=== PATIENT | female | born 1985 | race Caucasian/White ===

== ENCOUNTER → 2018-07-01 | Outpatient (CLI) | payer OTHER | END | disposition home or self-care (01) | LOC: FIMAGING 07:29 | PROVIDERS: ATTEND Advanced Practice Midwife | DX: Z36.89 Encounter for other specified antenatal screening (principal) ==

== ENCOUNTER 2018-11-26 19:56 | Inpatient (IN) | payer OTHER ==
--- NOTE | 2018-11-26 20:53 | PDGENHP ---
History and Physical History and Physical: Care: [facility] HPI: Shanelle Baxter is a 33yo with IUP@40-2 weeks that presents to L&D from [facility] for pain relief, currently in early labor. She reports contractions regular and intense all day and has increasing back spasms. She states contractions now spaced out to every 15 min EDC: 11/24/2018 which is based on LMP which is known and consistent with Ultrasound at 10 weeks. Her is complicated by: rh negative, FAMILY DENTIST Review of Systems: Constitutional: Denies any fever, chills, or fatigue HEENT: denies any visual changes, difficulty swallowing, hearing loss Cardiovascular: Denies any chest pain, palpitations, leg swelling Respiratory: denies any cough, wheezing, or shortness of breathe GI: Denies any nausea, vomiting, diarrhea, constipation : denies any dysuria, urgency, frequency, vaginal bleeding Musculoskeletal: denies any muscle or bone pain Skin: denies any rashes Neuro: denies any headache, seizures, lightheadedness, dizziness, or loss of consciousness Psychiatric: denies any depression, anxiety, or SI/HI thoughts HISTORY: Previous OB history: G1 Past medical history: migraines, h/o depression Past surgical history: cyst removed from wrist, tonsillectomy, oral surgery Social: Denies any alcohol, tobacco, or drug use. Family history: Not relevant Medications: PNV, folic acid, rhogam (08/25/18) Allergies: PCN, demerol, codeine, bactrim, benadryl, cephalosporins LABS: Rh: O neg ABS: Neg Rubella: Immune HbsAg: NR HIV: NR VDRL: NR 1hr: 95 GC: Neg Chlamydia: Neg Pap: Normal (pap 2018) GBS: neg PHYSICAL EXAM: Constitutional: WN, A&Ox3 HEENT: normocephalic atraumatic, supple Skin: Warm, dry, intact Heart: RRR, no murmur Chest: CTA-B Abdomen: Soft, nontender, gravid SVE: 2/90/0 (per CNM from [facility]) Extremities: trace edema, negative Marvin's sign Neuro: grossly normal Psych: normal affect assessment: FHT baseline 150 +accels, no decels, moderate variability Contractions: toco q 15 Assessment: * [id number] with IUP@ 40-2wks * Rh negative * early/prodromal labor * cat 1 FHR tracing * GBS Negative Plan: * admit to L&D * PEDRO per pt request * will start induction at time of PEDRO, pitocin per protocol * reassess 2-4hr/PRN Today's visit was approximately 30 min, of which >50% of visit 20 min, was spent face to face with pt on direct counseling/coordination of care.
[2018-11-26] MEDS ORDERED: LIDOCAINE 1% 300 MG/30 ML SDV SC PRN (21:01)
[2018-11-26] MEDS ORDERED: OLIVE OIL 118 ML BTL MISC PRN (21:01)
[2018-11-26] MEDS ORDERED: TERBUTALINE SULFATE 1 MG/ML VIAL IV PRN (21:01)
[2018-11-26] MEDS ORDERED: OXYTOCIN/RINGERS LACTATE 1,000 ML IV PRN (21:01)
[2018-11-26] MEDS ORDERED: AMMONIA AROMATIC 1 EACH AMP IH PRN (21:01)
[2018-11-26] MEDS ORDERED: EPSOM SALT 454 GM TP PRN (21:01)
[2018-11-26] MEDS ORDERED: IBUPROFEN 600 MG TAB PO PRN (21:01)
[2018-11-26] MEDS ORDERED: MISOPROSTOL 200 MCG TAB PO PRN (21:01)
[2018-11-26] MEDS ORDERED: LR 1,000 ML IV PRN (21:01)
[2018-11-26 21:12] LABS: PLATELET COUNT 187 10^3/uL (150-400)
--- NOTE | 2018-11-26 21:22 | PREANESOB ---
Obstetric Pre-Anesthesia Info - General Info Proposed Procedure: PEDRO - Info Status: Full Term Monitors: External FHR Pattern: Reassuring - Labor Status Pitocin: Planned Indications for Labor Analgesia: Pain Control Labor Epidural: Proposed Anesthesia Allergies/Adverse Reactions: Allergy/AdvReac Type Severity Reaction Status Date / Time amoxicillin Allergy Verified 06/21/16 15:43 Cephalosporins Allergy Verified 06/21/16 15:43 codeine Allergy Verified 06/21/16 15:42 Penicillins Allergy Verified 06/21/16 15:42 sulfamethoxazole Allergy Verified 06/21/16 15:42 [From Bactrim] trimethoprim [From Bactrim] Allergy Verified 06/21/16 15:42 Home Medications: Medication Instructions Recorded Azithromycin [Zithromax] 250 mg PO DAILY #6 tab 06/21/16 Visit Medications: Generic Name Dose Route Start Last Admin Trade Name Freq PRN Reason Stop Dose Admin Ammonia (Aromatic Spirit) 1 each 11/26/18 21:01 Ammonia Aromatic IH 12/06/18 21:00 ONCE PRN Fainting Lactated Ringer's 1,000 mls @ 0 mls/hr 11/26/18 21:01 Lr IV 11/27/18 21:00 PRN PRN SEE PROTOCOL CONDITIONS Protocol Per Protocol Oxytocin/Lactated Ringer's 1,000 mls @ 999 mls/hr 11/26/18 21:01 Pitocin 20 Units/Lr (Premix) IV PRN PRN Post bleeding Ibuprofen 600 mg 11/26/18 21:01 Motrin PO ONCE PRN post , pain Lidocaine HCl 300 mg 11/26/18 21:01 Lidocaine Hcl 1% SC 05/25/19 21:00 ONCE PRN episiotomy Magnesium Sulfate 454 gm 11/26/18 21:01 Epsom Salt TP 05/25/19 21:00 Q1H PRN perineal discomfort Misoprostol 800 - 1,000 mcg 11/26/18 21:01 Cytotec PO 05/25/19 21:00 ONCE PRN Vaginal Atony/Bleeding [place] Oil 118 ml 11/26/18 21:01 Sweet Oil MISC 05/25/19 21:00 ONCE PRN perineal massage Terbutaline Sulfate 0.25 mg 11/26/18 21:01 Brethine IV 05/25/19 21:00 ONCE PRN Tachysystole - Anesthesia History Response to Local Anesthetics: Not Applicable Anesthesia & Operative History: No Prior Problems Family Anesthesia History: Not Applicable - Focused Exam Neck exam: FROM Mallampati Score: Class 1 Mouth exam: normal dental/mouth exam Pulmonary: no respiratory distress Cardiovascular: regular rate and rhythym Labs: 11/26/18 21:00 - Plan Anesthetic Plan: PEDRO Consent Signed and on Chart: Yes Patient/Guardian Understands and Agrees to Plan: Yes Urgent/Emergent Case: Meghann wong completed preop but documented later for safe timely pt care
--- NOTE | 2018-11-26 21:22 | PDANEPAE ---
ANE Past Medical History - Pulmonary History Hx Oxygen in Use at Home: No - Endocrine History Hx Diabetes: No ANE Review of Systems Review of Systems: ANE Patient History - Allergies Allergies/Adverse Reactions: amoxicillin Allergy (Verified 06/21/16 15:43) Cephalosporins Allergy (Verified 06/21/16 15:43) codeine Allergy (Verified 06/21/16 15:42) Penicillins Allergy (Verified 06/21/16 15:42) sulfamethoxazole [From Bactrim] Allergy (Verified 06/21/16 15:42) trimethoprim [From Bactrim] Allergy (Verified 06/21/16 15:42) - Smoking Hx Smoking Status: Never smoked ANE Labs/Vital Signs - Labs Result Diagrams: 11/26/18 21:00
[2018-11-26] MEDS ORDERED: BUPIVACAINE 0.25% 10 ML SDV ONE (21:23)
[2018-11-26] MEDS ORDERED: fentaNYL 2MCG/ML/BUP 0.1% RTU 100 ML BAG EP ONE (21:23)
[2018-11-26] MEDS ORDERED: PHENYLEPHRINE HCL 100 MCG/ML SYR IVP PRN (21:57)
[2018-11-26] MEDS ORDERED: ONDANSETRON 4 MG/2 ML VIAL IVP PRN (21:57)
[2018-11-26] MEDS ORDERED: METOCLOPRAMIDE 10 MG/2 ML VIAL IVP PRN (21:57)
[2018-11-26] MEDS ORDERED: NALOXONE HCL 0.4 MG/ML INJ IVP PRN (21:57)
--- NOTE | 2018-11-26 21:57 | POSTANESTH ---
Post Anesthetic Evaluation Cardiovascular Status: Normal, Stable Respiratory Status: Normal, Stable Level of Consciousness/Mental Status: Can Participate in Eval Pain Control: Adequate, Prn Tx Ordered Nausea/Vomiting Control: Adequate, Prn Tx Ordered Complications Possibly Related to Anesthesia: None Noted
[2018-11-26] MEDS ORDERED: LR 500 ML IV SCH (22:00)
[2018-11-26] MEDS ORDERED: fentaNYL 2MCG/ML/BUP 0.1% RTU 100 ML EP SCH (22:00)
[2018-11-26] MEDS ORDERED: OLIVE OIL 118 ML BTL MISC ONE (22:19)
[2018-11-26] MEDS ORDERED: TERBUTALINE SULFATE 1 MG/ML VIAL ONE (22:19)
[2018-11-26] MEDS ORDERED: LIDOCAINE 1% 300 MG/30 ML SDV ONE (22:19)
[2018-11-26] MEDS ORDERED: OXYTOCIN 10 UNIT/ML VIAL ONE (22:19)
[2018-11-26] MEDS ORDERED: MISOPROSTOL 200 MCG TAB ONE (22:19)
[2018-11-26] MEDS ORDERED: AMMONIA AROMATIC 1 EACH AMP IH ONE (22:19)
--- NOTE | 2018-11-26 22:37 | OBPROG ---
Labor Progress Note Assessment/Plan: Assessment: [id number] with IUP@ 40-2wks early labor GBS Negative CAt 2 FHR tracing, prolong decel x [address] FSE applied Plan: cont monitoring start pitocin once cat [address] Barros- aware and in house at this time reassess 2h/PRN 11/26/18 22:34 Subjective/Intrapartum Course: 11/26/18 22:37 PT comfortable with PEDRO. Denies any pain. She is agreeable to FSE 2/2 bradycardia. FOB @ BS and supportive. Objective: 11/26/18 21:00 Patient ABO/Rh O NEGATIVE 11/26/18 21:00 - SVE Dilation (cm): 3 Effacement (%): 75 Station: -2 Membranes: AROM Amniotic Fluid Color: Clear - Contraction Pattern Assessment Current Contraction Pattern: Irregular - FHR Assessment [place] FHR Pattern Variability: Moderate FHR Category: 2 - Procedures Non-surgical Procedures: Amniotomy, FSE Oxytocin Orders Assessment - Pre-Induction/Augmentation Assessment Gestational Age: 40 week(s) and 2 day(s) ICD10 Worksheet Patient Problems: Problems Problem Status Onset Encounter for induction of labor Acute Supervision of normal first in third trimester Acute Supervision of normal in third trimester Acute - ICD10 Problem Qualifiers (1) Encounter for induction of labor (2) Supervision of normal in third trimester (3) Supervision of normal first in third trimester
--- NOTE | 2018-11-26 22:50 | OBPROG ---
Labor Progress Note Assessment/Plan: Assessment: Plan: Subjective/Intrapartum Course: 11/26/18 22:38 i was called in for an episode of bradycardia. on arrival fhts have returned to baseline. status reassuring now. patient was arom and fecg was placed. will augment with pitocin. will stay in house Objective: 11/26/18 21:00 Patient ABO/Rh O NEGATIVE 11/26/18 21:00 Oxytocin Orders Assessment - Pre-Induction/Augmentation Assessment Gestational Age: 40 week(s) and 2 day(s) ICD10 Worksheet Patient Problems: Problems Problem Status Onset Encounter for induction of labor Acute Supervision of normal first in third trimester Acute Supervision of normal in third trimester Acute
[2018-11-26] MEDS ORDERED: LR 500 ML IV PRN (22:51)
[2018-11-26] MEDS ORDERED: OXYTOCIN/RINGERS LACTATE 500 ML IV SCH (23:00)
--- NOTE | 2018-11-27 03:24 | OBPROG ---
Labor Progress Note Assessment/Plan: Assessment: [id number] with IUP@ 40-2wks early labor GBS Negative CAt 2 FHR tracing, repetitive variables PEDRO in place MVU's >200 Plan: start amnioinfusion turn pitocin off PRN reassess PRN Subjective/Intrapartum Course: 11/26/18 22:38 i was called in for an episode of bradycardia. on arrival fhts have returned to baseline. status reassuring now. patient was arom and fecg was placed. will augment with pitocin. will stay in house Objective: 11/26/18 21:00 Patient ABO/Rh O NEGATIVE 11/26/18 21:00 - SVE Dilation (cm): 3 Effacement (%): 75 Station: -2 Membranes: AROM Amniotic Fluid Color: Clear - Contraction Pattern Assessment Current Contraction Pattern: Irregular - Procedures Non-surgical Procedures: Amniotomy, FSE Oxytocin Orders Assessment - Pre-Induction/Augmentation Assessment Gestational Age: 40 week(s) and 2 day(s) ICD10 Worksheet Patient Problems: Problems Problem Status Onset Encounter for induction of labor Acute Supervision of normal first in third trimester Acute Supervision of normal in third trimester Acute - ICD10 Problem Qualifiers (1) Encounter for induction of labor (2) Supervision of normal in third trimester (3) Supervision of normal first in third trimester
--- NOTE | 2018-11-27 03:27 | OBPROG ---
Labor Progress Note Assessment/Plan: Assessment: [id number] with IUP@ 40-2wks early labor GBS Negative CAt 2 FHR tracing, repetitive variables PEDRO in place MVU's >200 Plan: repetitive decels pitocin off consulted with Dr Barros decision made to proceed with primary LTCS at this time Pt agrees/consents obtained 11/27/18 03:26 Subjective/Intrapartum Course: 11/26/18 22:38 i was called in for an episode of bradycardia. on arrival fhts have returned to baseline. status reassuring now. patient was arom and fecg was placed. will augment with pitocin. will stay in house 11/27/18 03:26 Pt reports increased back pain. agrees with plan to proceed to OR for c/s. FOB at BS and supportive and also agrees with POC. Objective: 11/26/18 21:00 Patient ABO/Rh O NEGATIVE 11/26/18 21:00 - SVE Membranes: AROM Amniotic Fluid Color: Clear - Contraction Pattern Assessment Current Contraction Pattern: Irregular - Procedures Non-surgical Procedures: Amniotomy, FSE Oxytocin Orders Assessment - Pre-Induction/Augmentation Assessment Gestational Age: 40 week(s) and 2 day(s) ICD10 Worksheet Patient Problems: Problems Problem Status Onset Encounter for induction of labor Acute Supervision of normal first in third trimester Acute Supervision of normal in third trimester Acute - ICD10 Problem Qualifiers (1) Encounter for induction of labor (2) Supervision of normal in third trimester (3) Supervision of normal first in third trimester
[2018-11-27] MEDS ORDERED: CITRIC ACID/SODIUM CITRATE 30 ML UDCUP ONE (03:34)
[2018-11-27] MEDS ORDERED: AZITHROMYCIN IV 500 MG in NS 250 ML IV ONE (03:35)
[2018-11-27] MEDS ORDERED: LR 500 ML IV ONE (03:35)
[2018-11-27] MEDS ORDERED: morphINE PF 5 MG/10 ML INJ ONE (03:37)
[2018-11-27] MEDS ORDERED: fentaNYL 100 MCG/2 ML INJ ONE (03:37)
[2018-11-27] MEDS ORDERED: ONDANSETRON 4 MG/2 ML VIAL ONE (03:40)
[2018-11-27] MEDS ORDERED: CITRIC ACID/SODIUM CITRATE 30 ML UDCUP PO ONE (03:40)
[2018-11-27] MEDS ORDERED: OXYTOCIN 100 UNITS/10 ML VIAL ONE (03:40)
[2018-11-27] MEDS ORDERED: ePHEDrine SULFATE 25 MG/5 ML SYR ONE (03:40)
[2018-11-27] MEDS ORDERED: PHENYLEPHRINE HCL 100 MCG/ML SYR ONE (03:40)
[2018-11-27] MEDS ORDERED: RANITIDINE 50 MG/2 ML VIAL ONE (03:40)
[2018-11-27] MEDS ORDERED: METOCLOPRAMIDE 10 MG/2 ML VIAL IVP ONE (03:43)
[2018-11-27] MEDS ORDERED: ACETAMINOPHEN 500 MG TAB PO ONE (03:43)
[2018-11-27] MEDS ORDERED: CLINDAMYCIN 900 MG/DEXTROSE 50 ML IV ONE (03:51)
[2018-11-27] MEDS ORDERED: SIMETHICONE 80 MG TAB CHEW PO PRN (03:56)
[2018-11-27] MEDS ORDERED: POLYETHYLENE GLYCOL 3350 17 GM PKT PO PRN (03:56)
[2018-11-27] MEDS ORDERED: LACTULOSE 20 GM/30 ML UDCUP PO PRN (03:56)
[2018-11-27] MEDS ORDERED: BISACODYL 10 MG SUPP PR PRN (03:56)
[2018-11-27] MEDS ORDERED: MAGNESIUM HYDROXIDE 30 ML UDCUP PO PRN (03:56)
[2018-11-27] MEDS ORDERED: oxyCODONE IR 5 MG TAB PO PRN (03:56)
--- NOTE | 2018-11-27 03:56 | OBPROG ---
Labor Progress Note Assessment/Plan: Assessment: Plan: Subjective/Intrapartum Course: 11/26/18 22:38 i was called in for an episode of bradycardia. on arrival fhts have returned to baseline. status reassuring now. patient was arom and fecg was placed. will augment with pitocin. will stay in house 11/27/18 03:26 Pt reports increased back pain. agrees with plan to proceed to OR for c/s. FOB at BS and supportive and also agrees with POC. 11/27/18 03:54 patient overall comfortable with epidural. has had severe deep variable decels. overall status reassuring. no change in cervix desipte adequate contractions. discussed management options with patient. will proceed with primary c section for intolerance of labor remote from delivery. clinda, gent and zithromax order. patient consented. anesthesia in house and consenting patient. Objective: 11/26/18 21:00 Patient ABO/Rh O NEGATIVE 11/26/18 21:00 - SVE Dilation (cm): 3 Effacement (%): 80 Station: -2 Membranes: AROM Amniotic Fluid Color: Clear - Contraction Pattern Assessment Current Contraction Pattern: Irregular - Procedures Non-surgical Procedures: Amniotomy, FSE Oxytocin Orders Assessment - Pre-Induction/Augmentation Assessment Gestational Age: 40 week(s) and 2 day(s) ICD10 Worksheet Patient Problems: Problems Problem Status Onset Encounter for induction of labor Acute Supervision of normal first in third trimester Acute Supervision of normal in third trimester Acute
[2018-11-27] MEDS ORDERED: GENTAMICIN PHARMACY TO DOSE MISC SCH (04:00)
[2018-11-27] MEDS ORDERED: LR 1,000 ML IV SCH (04:00)
[2018-11-27] MEDS ORDERED: fentaNYL 100 MCG/2 ML INJ IVP PRN (04:41)
[2018-11-27] MEDS ORDERED: OXYCODONE/APAP 5/325 TAB PO PRN (04:41)
[2018-11-27] MEDS ORDERED: NALOXONE HCL 0.4 MG/ML INJ IVP PRN (04:41)
[2018-11-27] MEDS ORDERED: HYDROmorphONE/DILAUDID 1 MG/ML INJ IVP PRN (04:41)
--- NOTE | 2018-11-27 04:41 | PREANESOB ---
Obstetric Pre-Anesthesia Info - General Info Proposed Procedure: C/S : 1 Para: 0 ZOILA: 11/24/18 Gestational Age: 40 week(s) and 2 day(s) - Info Status: Full Term Monitors: Internal FHR Pattern: Non-reassuring (multiple episodes of bradycardia) - Labor Status Cervical Dilation per last OB SVE: 3 Station per last OB SVE: -2 Amniotic Fluid Color: Clear Pitocin: In Use PIH: No Section History: Primary Labor Epidural: Yes Anesthesia Allergies/Adverse Reactions: Allergy/AdvReac Type Severity Reaction Status Date / Time amoxicillin Allergy Verified 06/21/16 15:43 Cephalosporins Allergy Verified 06/21/16 15:43 codeine Allergy Verified 06/21/16 15:42 Penicillins Allergy Verified 06/21/16 15:42 sulfamethoxazole Allergy Verified 06/21/16 15:42 [From Bactrim] trimethoprim [From Bactrim] Allergy Verified 06/21/16 15:42 Home Medications: Medication Instructions Recorded Azithromycin [Zithromax] 250 mg PO DAILY #6 tab 06/21/16 Visit Medications: Generic Name Dose Route Start Last Admin Trade Name Freq PRN Reason Stop Dose Admin Acetaminophen 650 mg 11/27/18 06:56 Tylenol PO 05/26/19 06:55 Q6H [facility] Ammonia (Aromatic Spirit) 1 each 11/26/18 21:01 Ammonia Aromatic IH 12/06/18 21:00 ONCE PRN Fainting Bisacodyl 10 mg 11/27/18 03:56 Dulcolax Rectal [place] 05/26/19 03:55 DAILY PRN Constipation Protocol Diphenhydramine HCl 25 - 50 mg 11/26/18 21:57 Benadryl Injection IVP 05/25/19 21:56 Q6HRS PRN Itching Ephedrine Sulfate 10 mg 11/26/18 21:57 Ephedrine Sulfate IV 05/25/19 21:56 .Q2M PRN Hypotension Gentamicin Sulfate 1 each 11/27/18 04:00 Gentamicin Pharmacy To Dose MISC 05/26/19 03:59 AD LENNOX Protocol Lactated Ringer's 1,000 mls @ 0 mls/hr 11/26/18 21:01 Lr IV 11/27/18 21:00 PRN PRN SEE PROTOCOL CONDITIONS Protocol Per Protocol Oxytocin/Lactated Ringer's 1,000 mls @ 999 mls/hr 11/26/18 21:01 Pitocin 20 Units/Lr (Premix) IV PRN PRN Post bleeding Fentanyl/Bupivacaine HCl 100 mls @ 0 mls/hr 11/26/18 22:00 Fentanyl/Bupivacaine/Ns 2 Mcg/Ml 0.1% (Premix EP 12/06/18 21:59 CONT LENNOX Protocol As Directed Lactated Ringer's 500 mls @ 0 mls/hr 11/26/18 22:00 Lr IV 05/25/19 21:59 CONT LENNOX As Directed Lactated Ringer's 500 mls @ 500 mls/hr 11/26/18 22:51 Lr IV 11/27/18 22:51 PRN PRN Maternal Hypotension Oxytocin/Lactated Ringer's 500 mls @ 0 mls/hr 11/26/18 23:00 11/26/18 23:20 Pitocin 30 Units/Lr (Premix) IV 05/25/19 22:59 500 mls CONT LENNOX Administration Protocol Per Protocol Lactated Ringer's 1,000 mls @ 125 mls/hr 11/27/18 04:00 Lr IV 11/28/18 03:59 CONT LENNOX Gentamicin Sulfate 400 mg/ 110 mls @ 110 mls/hr 11/27/18 04:00 Dextrose IV 12/27/18 03:59 Q24H [facility] Ibuprofen 600 mg 11/26/18 21:01 Motrin PO ONCE PRN post , pain Ibuprofen 600 mg 11/27/18 04:00 Motrin PO 05/26/19 03:59 Q6H [facility] Ketorolac Tromethamine 30 mg 11/27/18 04:00 Toradol IVP 11/27/18 22:01 Q6H [facility] Lactulose 20 gm 11/27/18 03:56 Cephulac PO 05/26/19 03:55 TID PRN Constipation Protocol Lidocaine HCl 300 mg 11/26/18 21:01 Lidocaine Hcl 1% SC 05/25/19 21:00 ONCE PRN episiotomy Magnesium Hydroxide 30 ml 11/27/18 03:56 Milk Of Magnesia PO 05/26/19 03:55 DAILY PRN Constipation Protocol Magnesium Sulfate 454 gm 11/26/18 21:01 Epsom Salt TP 05/25/19 21:00 Q1H PRN perineal discomfort Metoclopramide HCl 20 mg 11/26/18 21:57 Reglan Injection IVP 05/25/19 21:56 Q6HRS PRN Nausea/Vomiting, Can't Take PO Misoprostol 800 - 1,000 mcg 11/26/18 21:01 Cytotec PO 05/25/19 21:00 ONCE PRN Vaginal Atony/Bleeding Naloxone HCl 0.4 mg 11/26/18 21:57 Narcan IVP 05/25/19 21:56 PRN PRN Respiratory depression [place] Oil 118 ml 11/26/18 21:01 Sweet Oil MISC 05/25/19 21:00 ONCE PRN perineal massage Ondansetron HCl 4 mg 11/26/18 21:57 Zofran IVP 11/27/18 21:56 Q4HRS PRN Nausea/Vomiting, Can't Take PO Oxycodone HCl 5 - 10 mg 11/27/18 03:56 Oxycodone Ir PO 12/07/18 03:55 Q4HRS PRN Pain, Severe Able to Take PO Phenylephrine HCl 100 mcg 11/26/18 21:57 Neosynephrine IVP 05/25/19 21:56 .Q2M PRN Hypotension Polyethylene Glycol 17 gm 11/27/18 03:56 Miralax PO 05/26/19 03:55 DAILY PRN Constipation, patient prefers Protocol Senna/Docusate Sodium 1 - 2 tab 11/27/18 09:00 Senokot-S PO 05/26/19 08:59 BID LENNOX Protocol Simethicone 80 mg 11/27/18 03:56 Mylicon PO 05/26/19 03:55 .TIDMEALS AND HS PRN Gas Terbutaline Sulfate 0.25 mg 11/26/18 21:01 Brethine IV 05/25/19 21:00 ONCE PRN Tachysystole Discontinued Medications Generic Name Dose Route Start Last Admin Trade Name Freq PRN Reason Stop Dose Admin Acetaminophen 1,000 mg 11/27/18 03:43 11/27/18 03:59 Tylenol PO 11/27/18 03:44 1,000 mg ONCE ONE Administration Ammonia (Aromatic Spirit) Confirm 11/26/18 22:19 Ammonia Aromatic Administered 11/26/18 22:20 Dose 1 each IH .STK-MED ONE Bupivacaine HCl Confirm 11/26/18 21:23 Sensorcaine 0.25% Sdv Administered 11/26/18 21:24 Dose 10 ml .ROUTE .STK-MED ONE Citric Acid/Sodium Citrate Confirm 11/27/18 03:34 Bicitra Administered 11/27/18 03:35 Dose 30 ml .ROUTE .STK-MED ONE Citric Acid/Sodium Citrate 30 ml 11/27/18 03:40 11/27/18 04:00 Bicitra PO 11/27/18 03:41 30 ml ONCE ONE Administration Ephedrine Sulfate Confirm 11/27/18 03:40 Ephedrine Sulfate Administered 11/27/18 03:41 Dose 25 mg .ROUTE .STK-MED ONE Fentanyl Confirm 11/27/18 03:37 Sublimaze Administered 11/27/18 03:38 Dose 100 mcg .ROUTE .STK-MED ONE Fentanyl/Bupivacaine HCl Confirm 11/26/18 21:23 Fentanyl/Bupivacaine/Ns 2 Mcg/Ml 0.1% (Premix Administered 11/26/18 21:24 Dose 100 ml EP .STK-MED ONE Azithromycin 500 mg/ Sodium 255 mls @ 255 mls/hr 11/27/18 03:35 11/27/18 03: 59 Chloride IV 11/27/18 04:34 255 mls ONCE ONE Administration Protocol Lactated Ringer's 500 mls @ 0 mls/hr 11/27/18 03:35 Lr IV 11/27/18 03:36 ONCE ONE As Directed Clindamycin Phosphate/Dextrose 50 mls @ 100 mls/hr 11/27/18 03:51 Cleocin 900 Mg (Premix) IV 11/27/18 04:20 ONCE ONE Protocol Lidocaine HCl Confirm 11/26/18 22:19 Lidocaine Hcl 1% Administered 11/26/18 22:20 Dose 300 mg .ROUTE .STK-MED ONE Metoclopramide HCl 10 mg 11/27/18 03:43 11/27/18 03:59 Reglan Injection IVP 11/27/18 03:44 10 mg ONCE ONE Administration Misoprostol Confirm 11/26/18 22:19 Cytotec Administered 11/26/18 22:20 Dose 1,000 mcg .ROUTE .STK-MED ONE Morphine Sulfate Confirm 11/27/18 03:37 Morphine Pf 5 Mg/10 Ml Administered 11/27/18 03:38 Dose 5 mg .ROUTE .STK-MED ONE [place] Oil Confirm 11/26/18 22:19 Sweet Oil Administered 11/26/18 22:20 Dose 118 ml MISC .STK-MED ONE Ondansetron HCl Confirm 11/27/18 03:40 Zofran Administered 11/27/18 03:41 Dose 4 mg .ROUTE .STK-MED ONE Oxytocin Confirm 11/26/18 22:19 Pitocin Administered 11/26/18 22:20 Dose 40 unit .ROUTE .STK-MED ONE Oxytocin Confirm 11/27/18 03:40 Pitocin Administered 11/27/18 03:41 Dose 100 units .ROUTE .STK-MED ONE Phenylephrine HCl Confirm 11/27/18 03:40 Neosynephrine Administered 11/27/18 03:41 Dose 1,000 mcg .ROUTE .STK-MED ONE Ranitidine HCl Confirm 11/27/18 03:40 Zantac Administered 11/27/18 03:41 Dose 50 mg .ROUTE .STK-MED ONE Terbutaline Sulfate Confirm 11/26/18 22:19 Brethine Administered 11/26/18 22:20 Dose 1 mg .ROUTE .STK-MED ONE - Anesthesia History Response to Local Anesthetics: Not Applicable Anesthesia & Operative History: No Prior Problems Family Anesthesia History: Not Applicable - Vital Signs Height/Weight (Nursing): Height 170.18 cm Weight 77.111 kg - Focused Exam Neck exam: FROM Mallampati Score: Class 1 Mouth exam: normal dental/mouth exam Pulmonary: no respiratory distress Cardiovascular: regular rate and rhythym Labs: 11/26/18 21:00 Patient ABO/Rh O NEGATIVE 11/26/18 21:00 - Plan Consent Signed and on Chart: Yes Patient/Guardian Understands and Agrees to Plan: Yes Urgent/Emergent Case: Meghann wong completed preop but documented later for safe timely pt care
--- NOTE | 2018-11-27 04:41 | POSTANESTH ---
Post Anesthetic Evaluation Cardiovascular Status: Normal, Stable Respiratory Status: Normal, Stable Level of Consciousness/Mental Status: Can Participate in Eval, Alert and Oriented Pain Control: Adequate, Prn Tx Ordered Nausea/Vomiting Control: Adequate, Prn Tx Ordered Complications Possibly Related to Anesthesia: None Noted
[2018-11-27] MEDS ORDERED: KETOROLAC 30 MG/1 ML SDV ONE (05:02)
[2018-11-27] MEDS: KETOROLAC 30 MG/1 ML SDV IVP SCH ×4 (05:03→23:11)
--- NOTE | 2018-11-27 05:06 | OBDEL ---
Info Type: Primary Presentation at Delivery: Vertex L&D Analgesia/Anesthesia Type: Epidural GBS+: No Intrapartum Medications: Generic Name Dose Route Start Last Admin Trade Name Freq PRN Reason Stop Dose Admin Oxytocin/Lactated Ringer's 500 mls @ 0 mls/hr 11/26/18 23:00 11/26/18 23:20 Pitocin 30 Units/Lr (Premix) IV 05/25/19 22:59 500 mls CONT LENNOX Administration Protocol Per Protocol Discontinued Medications Generic Name Dose Route Start Last Admin Trade Name Freq PRN Reason Stop Dose Admin Acetaminophen 1,000 mg 11/27/18 03:43 11/27/18 03:59 Tylenol PO 11/27/18 03:44 1,000 mg ONCE ONE Administration Citric Acid/Sodium Citrate 30 ml 11/27/18 03:40 11/27/18 04:00 Bicitra PO 11/27/18 03:41 30 ml ONCE ONE Administration Azithromycin 500 mg/ Sodium 255 mls @ 255 mls/hr 11/27/18 03:35 11/27/18 03: 59 Chloride IV 11/27/18 04:34 255 mls ONCE ONE Administration Protocol Metoclopramide HCl 10 mg 11/27/18 03:43 11/27/18 03:59 Reglan Injection IVP 11/27/18 03:44 10 mg ONCE ONE Administration - Hospital Course Intrapartum: 11/26/18 22:38 i was called in for an episode of bradycardia. on arrival fhts have returned to baseline. status reassuring now. patient was arom and fecg was placed. will augment with pitocin. will stay in house 11/27/18 03:26 Pt reports increased back pain. agrees with plan to proceed to OR for c/s. FOB at BS and supportive and also agrees with POC. 11/27/18 03:54 patient overall comfortable with epidural. has had severe deep variable decels. overall status reassuring. no change in cervix desipte adequate contractions. discussed management options with patient. will proceed with primary c section for intolerance of labor remote from delivery. clinda, gent and zithromax order. patient consented. anesthesia in house and consenting patient. Indications for Delivery: Spontaneous Labor Vaginal Delivery - Labor and Delivery Onset of Contractions Date: 11/26/18 Onset of Contractions Time: 12:00 Amniotic Fluid Color: Clear Non-surgical Procedures: Amniotomy, FSE Cord Gases: Cord Gases Cord Blood PCO2 58 mmHg (37-60) 11/27/18 04:34 Cord Base Excess -5.8 mEq/L (-13.6--3.2) 11/27/18 04:34 Cord ABG pH 7.22 (7.10-7.37) 11/27/18 04:34 Cord VBG pH 7.30 (7.20-7.42) 11/27/18 04:34 Operative Report - Delivery Pre-op Diagnoses: iup 40 2/7 weeks, intolerance of labor remote from delivery Post-op Diagnoses: same as preop plus occiput posterior, meconium stained fluid History of Prior Section: No Nulliparous Prior to Delivery: Yes Indications for Current Section: Arrest of Dilation, Non-reas. Status Procedure: Unscheduled, Low Transverse Surgeon: Lisbeth Barros Basketball Referee: Maribell Pleitez Anesthesiologist: Shiv Cardoso Specimen(s)/Path: Placenta EBL: 700 Cord Gases: Cord Gases Cord Blood PCO2 58 mmHg (37-60) 11/27/18 04:34 Cord Base Excess -5.8 mEq/L (-13.6--3.2) 11/27/18 04:34 Cord ABG pH 7.22 (7.10-7.37) 11/27/18 04:34 Cord VBG pH 7.30 (7.20-7.42) 11/27/18 04:34 [place] Data ZOILA: 11/24/18 Gestational Age: 40 week(s) and 3 day(s) [place] Delivery Date: 11/27/18 Delivery Time: 04:24 Sex of Infant: Male Score (1 Min): 8 Score (5 Min): 9 ICD10 Worksheet Patient Problems: Problems Problem Status Onset Encounter for induction of labor Acute Supervision of normal first in third trimester Acute Supervision of normal in third trimester Acute
[2018-11-27] MEDS: GENTAMICIN SULFATE 400 MG in D5W 100 ML IV SCH (05:34)
--- NOTE | 2018-11-27 05:37 | GOP ---
[f rep st] OPERATIVE REPORT DATE OF OPERATION: 11/27/2018 SURGEON: Lisbeth Barros DO STOCK WETTER: Maribell Pleitez CNM. ANESTHESIOLOGIST: Shiv Cardoso MD. PREOPERATIVE DIAGNOSIS: 1. Intrauterine at 40 and 2/7 weeks gestation. 2. intolerance of labor. POSTOPERATIVE DIAGNOSIS: 1. Intrauterine at 40 and 2/7 weeks gestation. 2. intolerance of labor. 3. Occiput posterior, plus meconium-stained fluid plus calcified placenta. 4. prominent sacrum. PROCEDURE PERFORMED: Primary low transverse section. FINDINGS: 1. Viable male in the cephalic occiput posterior presentation, delivered at 0424 's were 8 and 9. 2. Intact placenta with 3-vessel cord. 3. Normal ovaries, uterus and tubes. ESTIMATED BLOOD LOSS: 700 cc. INDICATIONS: Patient is a 33-year-old, 1, para 0, who presented for the [facility] [place] for pain relief in labor. She was 40 and 2/7 weeks gestation. She was having significant back spasms. She arrived requesting epidural for relief of the back pain and agreed to augmentation if she did not progress into labor. She received an epidural which provided adequate pain relief. Shortly thereafter, baby had a prolonged deceleration lasting 8 minutes with return to baseline following that. I was called in for assessment of that. status remained reassuring. After that, patient's membranes were artificially ruptured and a scalp electrode was placed during the deceleration. She was 3 cm dilated, 70% effaced, and -2 station. Pitocin was started for augmentation of labor. The patient got to adequate contractions and was not making any change in the cervix and baby had started having intermittent severe decelerations down to the 50s. Because patient was remote from delivery and not making any change in her cervix, decision was made to proceed with a primary low transverse section. Risks and benefits were reviewed with the patient. Patient was properly consented. DESCRIPTION OF PROCEDURE: Patient was taken to the operating room with intravenous fluids in place. She was given intravenous Zithromax, clindamycin and gentamicin. Centeno catheter was already in place. Venodyne's were on her lower extremities. She was then prepped and draped in the normal sterile fashion after being placed on the operating room table in dorsal supine position with a leftward tilt. Anesthesia was assessed and found to be adequate. A Pfannenstiel skin incision was then made 2 fingerbreadths above the pubic symphysis. The incision was then carried through to the underlying layer of fascia with the Bovie. The fascia was then nicked in the midline. The fascial incision was then extended laterally. The superior aspect of the fascial incision was then grasped with a Ivana, tented up and the underlying rectus muscle dissected off bluntly with the Bovie. Attention was then turned to the inferior aspect of the fascial incision, which in a similar fashion was grasped with Ivana's, tented up and the underlying rectus muscle dissected off bluntly and with the Bovie. The rectus muscle was then in the midline. The peritoneum was then identified, tented up, and entered sharply with Metzenbaum scissors. The incision was extended superiorly and inferiorly with excellent visualization of the bladder. The bladder blade was then inserted. The vesicouterine peritoneum was then identified, tented up, and entered sharply with the Metzenbaum scissors. The incision was extended laterally and a bladder flap was created digitally. The bladder blade was then reinserted. The uterus was then incised in low transverse fashion with the scalpel. The uterine incision was then extended laterally. Meconium fluid was noted upon entering the uterus. The baby was noted to be in the occiput posterior presentation. A viable male infant was then delivered through the incision without difficulty. Delayed cord clamping x1 minute was performed. Cord was then clamped x2 and cut. Cord blood was obtained and cord gases and the infant were handed off to awaiting nurse practitioner. Intact placenta with 3-vessel cord delivered without difficulty. The uterus was then exteriorized and cleared of all clots and debris and wrapped in a moist laparotomy sponge. The Pitocin was started. the sacrum was noted to be quite prominent. The bladder blade was then reinserted. The hysterotomy was closed with 0 Vicryl in a running locked fashion. A 2nd 0 Vicryl stitch was used to imbricate the uterine incision. An area of vessel was noted to be bleeding in the left lower portion of the incision. This was suture ligated with an 0 Vicryl stitch. Hemostasis was then assured. The uterus was then returned to the patient's abdomen. The gutters were cleared of all clots and debris. The hysterotomy remained hemostatic. Peritoneum was reapproximated with 3-0 Vicryl in a running fashion. Rectus muscle was reapproximated with 2-0 Vicryl in a running fashion. The fascia was closed with 0 Vicryl in a running fashion. Meghann's tissue was reapproximated with 2-0 Vicryl in a running fashion. Subcuticular tissues were closed with 3-0 Vicryl in a running fashion. Sponge, lap, and needle count were correct x2. Patient was transported to recovery room in stable condition. CORD GASES: Arterial pH was 7.22. Venous pH was 7.3. /[id number]/MODL MTDD
[2018-11-27] MEDS: IBUPROFEN 600 MG TAB PO SCH ×3 (05:54→17:08)
[2018-11-27] MEDS: ACETAMINOPHEN 325 MG TAB PO SCH ×3 (10:18→23:12)
--- NOTE | 2018-11-27 12:15 | POSTANESTH ---
Post Anesthetic Evaluation Cardiovascular Status: Normal, Stable, Similar to Pre-Op Cond Respiratory Status: Normal, Stable, Similar to Pre-op Cond. Level of Consciousness/Mental Status: Can Participate in Eval, Alert and Oriented Pain Control: Adequate, Prn Tx Ordered Nausea/Vomiting Control: Adequate, Prn Tx Ordered Complications Possibly Related to Anesthesia: None Noted Notes: Pt seen and examined, S/P PEDRO--C/S with epidural duramorph. Back site c/d/i. Block has resolved complletely, no apparent adverse effects from the anesthesia. Denies n/v/DUNHAM, mild pruritis. Was concerned that block was at certain points somewhat R>>L, but overall satisfied with her experience.
[2018-11-27] MEDS: SENNOSIDES/DOCUSATE SODIUM TAB PO SCH (13:55)
[2018-11-28] MEDS: IBUPROFEN 600 MG TAB PO SCH ×5 (05:40→23:42)
[2018-11-28] MEDS: ACETAMINOPHEN 325 MG TAB PO SCH ×4 (05:41→23:42)
[2018-11-28] MEDS: GENTAMICIN SULFATE 400 MG in D5W 100 ML IV SCH (08:13)
[2018-11-28] MEDS: SENNOSIDES/DOCUSATE SODIUM TAB PO SCH ×3 (10:35→23:41)
--- NOTE | 2018-11-28 11:32 | OBPP ---
Progress Note Assessment/Plan: Assessment: pod# 1 s/p PLTCS for intolerance of labor breast feeding rh neg baby rh pos - rhogam ordered rI hct pending Plan: 11/28/18 11:29 Subjective/ Course: 11/28/18 11:31 patient is doing well. pain is well controlled. normal lochia. denies headache and changes in vision. working on breast feeding. discussed surgery and recovery and prominent sacrum and baby op. Objective: 11/26/18 21:00 Patient ABO/Rh O NEGATIVE 11/27/18 06:45 Temp Pulse Resp BP Pulse Ox 36.1 C 90 18 94/63 L 94 11/28/18 07:44 11/28/18 07:44 11/28/18 07:44 11/28/18 07:44 11/28/18 07:44 Physical Exam - Physical Exam Neck: non-tender, full range of motion Respiratory: chest non-tender, lungs clear, normal breath sounds Cardiac/Chest: normal peripheral pulses, regular rate, rhythm Abdomen: normal bowel sounds, non-tender, other (fundus firm and non tender) Extremities: normal range of motion, non-tender, normal inspection, normal capillary refill Skin: normal color, warm/dry, other (incision covered) Neuro/Psych: no motor/sensory deficits, alert, normal mood/affect, oriented x 3
--- NOTE | 2018-11-28 14:59 | OBPP ---
Progress Note Assessment/Plan: Assessment: [id number] s/p PLTCS 2/2 intolerance to labor POD#1 Plan: Routine PO care CNM will see pt Day#2 until d/c 11/28/18 14:57 Subjective/ Course: 11/28/18 11:31 patient is doing well. pain is well controlled. normal lochia. denies headache and changes in vision. working on breast feeding. discussed surgery and recovery and prominent sacrum and baby op. 11/28/18 14:58 Pt doing well, ambulating without difficulty. considering d/c home tomorrow PM. Objective: 11/28/18 14:05 Patient ABO/Rh O NEGATIVE 11/27/18 06:45 Temp Pulse Resp BP Pulse Ox 36.8 C 84 16 112/66 96 11/28/18 13:56 11/28/18 13:56 11/28/18 13:56 11/28/18 13:56 11/28/18 13:56
[2018-11-29] MEDS: IBUPROFEN 600 MG TAB PO SCH ×2 (05:48→11:49)
[2018-11-29] MEDS: ACETAMINOPHEN 325 MG TAB PO SCH ×2 (05:49→11:49)
[2018-11-29 10:06] VITALS: BP 122/79
[2018-11-29] MEDS ORDERED: FERROUS SULFATE 325 MG TAB PO SCH (11:00)
[2018-11-29] MEDS: SENNOSIDES/DOCUSATE SODIUM TAB PO SCH (11:49)
--- NOTE | 2018-11-29 12:48 | OBGCSDC ---
General Delivery Information - General Info : 1 Para: 1 Abortions: 0 Type: Primary L&D Analgesia/Anesthesia Type: Epidural Admission Date: 11/26/18 Labs: Patient ABO/Rh O NEGATIVE 11/27/18 06:45 Hct 30.8 % (38.0-47.0) L 11/28/18 14:05 Temp Pulse Resp BP Pulse Ox 11/29/18 08:00 36.6 C 90 14 122/79 H 96 11/29/18 02:09 36.1 C 79 16 116/80 96 11/28/18 20:48 36.4 C 71 14 109/63 96 11/28/18 13:56 36.8 C 84 16 112/66 96 - Hospital Course Intrapartum: 11/26/18 22:38 i was called in for an episode of bradycardia. on arrival fhts have returned to baseline. status reassuring now. patient was arom and fecg was placed. will augment with pitocin. will stay in house 11/27/18 03:26 Pt reports increased back pain. agrees with plan to proceed to OR for c/s. FOB at BS and supportive and also agrees with POC. 11/27/18 03:54 patient overall comfortable with epidural. has had severe deep variable decels. overall status reassuring. no change in cervix desipte adequate contractions. discussed management options with patient. will proceed with primary c section for intolerance of labor remote from delivery. clinda, gent and zithromax order. patient consented. anesthesia in house and consenting patient. : 11/28/18 11:31 patient is doing well. pain is well controlled. normal lochia. denies headache and changes in vision. working on breast feeding. discussed surgery and recovery and prominent sacrum and baby op. 11/28/18 14:58 Pt doing well, ambulating without difficulty. considering d/c home tomorrow PM. 11/29/18 12:40 S) Pt doing well, reports min pain and bleeding. she is ambulating and voiding without difficulty. She is . She desires discharge home today. O) VSS, afebrile constitutional: WNWF, A&Ox3 HEENT: normocephalic, atraumatic, supple Heart: RRR, No murmur Chest: CTA-B Abdomen: Soft, nontender Uterus: Firm at U-2 Lochia: Minimal rubra Perineum: Intact, healing well Extremities: Trace edema, and negative Marvin's sign Neuro: Grossly normal A) 33 year-old P1 S/P primary for intolerance to labor POD#2 going well Anemia P) Discharge home today Continue BID iron Pelvic rest x6wks Discussed danger signs (infection, preeclampsia, depression, heavy bleeding, etc) RTO with dry yard worker office 1-2 weeks for incision check and 6 weeks, follow up with center as desired Vaginal - Diagnosis Amniotic Fluid Color: Clear - Procedures Non-surgical Procedures: Amniotomy, FSE - Delivery Providers Surgeon: Lisbeth Barros Pig Machine Crane Operator: Maribell Pleitez Anesthesiologist: Shiv Cardoso - Delivery Indications for Current Section: Arrest of Dilation, Non-reas. Status Non-surgical Procedures: Amniotomy, FSE Surgical Procedures: Unscheduled, Low Transverse EBL: 700 Data ZOILA: 11/24/18 Gestational Age: 40 week(s) and 5 day(s) [place] Delivery Date: 11/27/18 Delivery Time: 04:24 Sex of : Male [place] Weight (gm): 3262 g Score (1 Min): 8 Score (5 Min): 9 Discharge Information - Discharge Information Prescriptions: oxyCODONE IR [Oxycodone Ir (*)] 5 - 10 mg PO Q4HRS PRN #20 tab PRN Reason: Pain, Severe Able To Take Po Ferrous Sulfate [Ferrous Sulf 325 MG (*)] 325 mg PO BID #60 tab Ibuprofen [Motrin (*)] 600 mg PO Q6H #40 tab Sennosides/Docusate Sodium [Senokot-S] 1 - 2 tab PO BID #60 tab Condition: Good Instruction/Follow Up: Two Weeks, Six Weeks
== END 2018-11-29 14:30 | disposition home or self-care (01) | DRG 788 ==
LOC: FLD 19:56 → OBSVTOIN 21:03 → FOB 11-27 07:49
PROVIDERS: ADMIT Advanced Practice Midwife; ATTEND Obstetrics & Gynecology
PROC: 4A1H74Z Monitoring of Products of Conception, Cardiac Electrical Activity, Via Natural or Artificial Opening (ICD-10-PCS; 2018-11-26)
PROC: 10D00Z1 Extraction of Products of Conception, Low, Open Approach (ICD-10-PCS; principal; 2018-11-27)
DX: O76 Abnormality in fetal heart rate and rhythm complicating labor and delivery (principal); O77.0 Labor and delivery complicated by meconium in amniotic fluid; O90.81 Anemia of the puerperium; Z3A.40 40 weeks gestation of pregnancy; Z37.0 Single live birth
CPT/HCPCS: J0456; J1580; J1885; J2274; J2370; J2405; J2590; J2765; J2780; J3010; J3105